=== PATIENT | female | born 1970 | race Caucasian/White ===

== ENCOUNTER 2017-01-01 19:31 | Observation (INO) ==
[2017-01-01] MEDS ORDERED: ASPIRIN PO STA (19:34)
[2017-01-01] MEDS ORDERED: NITROGLYCERIN ONE (20:01)
[2017-01-01 20:05] LABS: MANUAL DIFF NEEDED? NO
[2017-01-01] MEDS: NITROGLYCERIN SL PRN ×2 (20:05→23:11)
[2017-01-01 20:09] LABS: BASO% 0.2 % (0.0-0.8); EOS# 0.16 X1000 (0.0-0.7); EOS% 1.5 % (0.0-10.0); IMM GRAN# 0.03 X1000 (0.0-0.04); IMM GRAN% 0.3 % (0.0-0.5); LYMPH% 27.3 % (20.5-51.1); MCH 28.3 PG (27-31); MCHC 32.4 g/dL (33-37); MCV 87.3 FL (81-99); MONO% 3.8 % (1.7-9.3); MPV 10.4 FL (7.4-10.4); NEUT% 66.9 % (42.2-75.2); PLT 364 X1000 (130-400); RBC 4.24 XMIL (4.2-5.4)
[2017-01-01 20:15] LABS: INR 0.99; PROTIME 10.4 Seconds (9.2-11.7)
[2017-01-01 20:32] LABS: AGAP 12; ALKALINE PHOSPHATASE 60 U/L (32-104); BUN 13 mg/dL (8-22); CALCIUM 8.8 mg/dL (8.8-10.2); CHLORIDE 104 mmol/L (98-107); CK PROFILE 104 U/L (24-173); COSMO 279; GOT 11 U/L (10-30); GPT 9 U/L (10-36); POTASSIUM 3.6 mmol/L (3.5-5.1); SODIUM 139 mmol/L (136-145); TCO2 23 mmol/L (25-35); TOTAL BILIRUBIN 0.15 mg/dL (0.20-1.00); TOTAL PROTEIN 7.6 g/dL (6.3-8.3)
--- NOTE | 2017-01-01 21:55 | ED EKG INTERP ---
This chart was entered by Margarita Benitez Scribe, acting as scribe for Deshawn Gacría MD. EKG Interpretation - EKG Time of EKG reading by physician:: 19:37 EKG Read and Signed by:: Deshawn García EKG Interpretation (*Must complete 3 of following elements*): Abnormal Rate: 98 Rhythm: Sinus Rhythm W/ occasional premature ventricular complexes Comments: Abnormal ECG This chart was documented by the indicated scribe, (Margarita Benitez Scribe) and accurately reflects the services I performed and decisions made by me, Deshawn García MD, as attested by the provider's signature.
[2017-01-01 22:37] LABS: URINE MICRO REVIEW NEEDED? NO; URINE SOURCE CLEAN CATCH
[2017-01-01 22:40] LABS: BILIRUBIN URINE NEGATIVE (NEGATIVE); BLOOD URINE SMALL (NEGATIVE); COLOR YELLOW; GLUCOSE URINE NEGATIVE (NEGATIVE); LEUKOCYTES URINE NEGATIVE (NEGATIVE); NITRITE URINE NEGATIVE (NEGATIVE); PROTEIN URINE NEGATIVE (NEGATIVE); SP GRAVITY URINE 1.023; TURBIDITY URINE CLEAR (CLEAR); UROBILINOGEN URINE NORMAL (NORMAL)
[2017-01-01 22:42] LABS: UR EPITHELIAL CELLS >10 /HPF (<10); URINE BACTERIA 2+ /HPF; URINE RBC <10 /HPF (<10); URINE WBC <10 /HPF (<10)
[2017-01-01] MEDS ORDERED: NITROGLYCERIN SL PRN (23:11)
--- NOTE | 2017-01-02 00:32 | PROVIDER DOCUMENTATION ---
This chart was entered by Margarita Benitez Scribe, acting as scribe for Deshawn Garíca MD. HPI-Chest Pain - General Chief Complaint: Chest Pain Stated Complaint: CHEST PAIN Time Seen by Provider: 01/01/17 21:37 Source: patient Allergies/Adverse Reactions: Patient Allergies Allergy/AdvReac Type Severity Reaction Status Date / Time No Known Allergies Allergy Verified 01/01/17 21:03 Home Medications: Home Medication List Medication Instructions Recorded Confirmed Last Taken Type NK [No Home Medications] 01/01/17 01/01/17 Unknown History - History of Present Illness-CP Nature of Presenting Problem: 46 Y/O F presents to ED with Chest Pain. Pt states that that today she was at work around [id number]. Pt states that she had a sharp pain in her chest, with left arm numbness, diaphoresis, V felt near syncope and fatigue. Pt has a family hx of coronary disease. Location: reports: central Chest Pain Radiation: reports: no radiation Severity in ED: moderate, severe Onset/Duration: just prior to arrival, 1-3 hours ago Timing: still present Context/Activities at Onset: reports: none Associated Symptoms: reports: diaphoresis, fatigue, fever/chills, vomiting, weakness Nitro Today/Relief: no nitro taken today Aspirin Treatment Today: no aspirin today Review of Systems - Adult - REVIEW OF SYSTEMS - ADULT Constitutional: reports: chills, fatique. denies: fever Eyes: reports: no symptoms reported Ears, Nose, Mouth & Throat: reports: no symptoms reported Cardiovascular: reports: chest pain Respiratory: denies: shortness of breath Gastrointestinal: reports: vomiting. denies: abdominal pain, nausea Genitourinary: reports: no symptoms reported Musculoskeletal: reports: no symptoms reported Integumentary: reports: no symptoms reported Neurological: reports: numbness, syncope (near). denies: dizziness/vertigo, headache/migraines Psychiatric: reports: no symptoms reported Endocrine: reports: no symptoms reported Hematologic/Lymphatic: reports: no symptoms reported Allergic/Immunologic: reports: no symptoms reported All Other Systems: Reviewed and Negative Past History - Adult - PAST MEDICAL HISTORY-ADULT Review of Records: reports: Old Records Reviewed, Nursing Assessment Review, Medications Reviewed, Social history reviewed & non-contributory. Physical Exam-General - CONSTITUTIONAL General Appearance: alert, mild distress, obese - EYES Eyes: PERRL/EOMI, pink conjunctivae - HEAD, EARS, NOSE, MOUTH & THROAT HENMT: moist mucous membranes, normal ENT inspection, TMs normal, pharynx normal - NECK Neck: non-tender, full range of motion, supple, normal inspection - RESPIRATORY Respiratory: lungs clear, normal breath sounds - CARDIOVASCULAR Cardiovascular: regular rate, rhythm - GASTROINTESTINAL (ABDOMEN) Abdominal Exam: non tender, soft - LYMPHATIC Lymphatic: no adenopathy - MUSCULOSKELETAL Back Exam: normal inspection, no CVA tenderness, no vertebral tenderness Extremity: normal range of motion, non-tender - SKIN Integumentary: normal color, normal turgor, warm/dry - NEUROLOGIC Neurologic: grossly normal - PSYCHIATRIC Psych/Mental Status: normal thought content, normal thought process, oriented x 3, anxious Progress - PLAN OF CARE/RESULTS Progress/Plan/Lab Results: Vital Signs - 8 hr 01/01/17 19:35 01/01/17 20:45 01/01/17 21:45 Temperature 98.1 F Pulse Rate 100 H 88 87 Respiratory Rate 18 17 15 Blood Pressure 128/73 131/86 136/87 O2 Sat by Pulse Oximetry 100 98 98 01/01/17 22:54 01/02/17 00:29 Temperature Pulse Rate 81 80 Respiratory Rate 15 18 Blood Pressure 112/64 99/59 O2 Sat by Pulse Oximetry 97 98 Laboratory Results - last 24 hr 01/01/17 01/01/17 01/01/17 19:44 19:44 19:44 WBC 10.61 RBC 4.24 Hgb 12.0 Hct 37.0 MCV 87.3 MCH 28.3 MCHC 32.4 L RDW Std Deviation 13.4 Plt Count 364 MPV 10.4 Immature Gran % (Auto) 0.3 Neut % (Auto) 66.9 Lymph % (Auto) 27.3 Emmons % (Auto) 3.8 Eos % (Auto) 1.5 Baso % (Auto) 0.2 Immature Gran # (Auto) 0.03 Neut # (Auto) 7.10 H Lymph # (Auto) 2.90 Emmons # (Auto) 0.40 Eos # (Auto) 0.16 Baso # (Auto) 0.02 PT INR PTT (Actin FS) D-Dimer 0.62 H Sodium 139 Potassium 3.6 Chloride 104 Carbon Dioxide 23 L Anion Gap 12 BUN 13 Creatinine 0.7 Estimated GFR/1.73 m2 > 60 BUN/Creatinine Ratio 19 Glucose 114 H Calculated Osmolality 279 Calcium 8.8 Magnesium 2.0 Total Bilirubin 0.15 L AST 11 ALT 9 L Alkaline Phosphatase 60 Creatine Kinase 104 Troponin T Btf-H-Dyeztegpoty Pept Total Protein 7.6 Albumin 4.0 Globulin 3.6 Albumin/Globulin Ratio 1.1 Urine Source Urine Color Urine Turbidity Urine pH Ur Specific [place] Urine Protein Ur Glucose (Stick) Ur Ketones (Stick) Urine Blood Urine Nitrite Urine Bilirubin Urobilinogen Dipstick Urine Leukocytes Urine WBC (Auto) Urine RBC (Auto) U Epithel Cells (Auto) Urine Bacteria (Auto) 01/01/17 01/01/17 01/01/17 19:44 19:44 19:44 WBC RBC Hgb Hct MCV MCH MCHC RDW Std Deviation Plt Count MPV Immature Gran % (Auto) Neut % (Auto) Lymph % (Auto) Emmons % (Auto) Eos % (Auto) Baso % (Auto) Immature Gran # (Auto) Neut # (Auto) Lymph # (Auto) Emmons # (Auto) Eos # (Auto) Baso # (Auto) PT 10.4 INR 0.99 PTT (Actin FS) 28.0 D-Dimer Sodium Potassium Chloride Carbon Dioxide Anion Gap BUN Creatinine Estimated GFR/1.73 m2 BUN/Creatinine Ratio Glucose Calculated Osmolality Calcium Magnesium Total Bilirubin AST ALT Alkaline Phosphatase Creatine Kinase Troponin T < 0.010 Igj-C-Fblzcpcsuui Pept 104 Total Protein Albumin Globulin Albumin/Globulin Ratio Urine Source Urine Color Urine Turbidity Urine pH Ur Specific [place] Urine Protein Ur Glucose (Stick) Ur Ketones (Stick) Urine Blood Urine Nitrite Urine Bilirubin Urobilinogen Dipstick Urine Leukocytes Urine WBC (Auto) Urine RBC (Auto) U Epithel Cells (Auto) Urine Bacteria (Auto) 01/01/17 22:22 WBC RBC Hgb Hct MCV MCH MCHC RDW Std Deviation Plt Count MPV Immature Gran % (Auto) Neut % (Auto) Lymph % (Auto) Emmons % (Auto) Eos % (Auto) Baso % (Auto) Immature Gran # (Auto) Neut # (Auto) Lymph # (Auto) Emmons # (Auto) Eos # (Auto) Baso # (Auto) PT INR PTT (Actin FS) D-Dimer Sodium Potassium Chloride Carbon Dioxide Anion Gap BUN Creatinine Estimated GFR/1.73 m2 BUN/Creatinine Ratio Glucose Calculated Osmolality Calcium Magnesium Total Bilirubin AST ALT Alkaline Phosphatase Creatine Kinase Troponin T Ftg-L-Kjlalqmqkfn Pept Total Protein Albumin Globulin Albumin/Globulin Ratio Urine Source CLEAN CATCH Urine Color YELLOW Urine Turbidity CLEAR Urine pH 6.0 Ur Specific [place] 1.023 Urine Protein NEGATIVE Ur Glucose (Stick) NEGATIVE Ur Ketones (Stick) NEGATIVE Urine Blood SMALL A Urine Nitrite NEGATIVE Urine Bilirubin NEGATIVE Urobilinogen Dipstick NORMAL Urine Leukocytes NEGATIVE Urine WBC (Auto) <10 Urine RBC (Auto) <10 U Epithel Cells (Auto) >10 A Urine Bacteria (Auto) 2+ Orders Category Date Time Status Cardiac Monitoring DIRECTED Care 01/01/17 19:34 Active Saline Loc NOW Care 01/01/17 19:34 Active ANGIOGRAM/PULMONARY ARTERIES [CT] Stat Exams 01/01/17 21:58 Taken CHEST-2 VIEWS [RAD] Stat Exams 01/01/17 19:34 Taken CBC WITH ELECTRONIC DIFF [HEME] Stat Lab 01/01/17 19:44 Completed CK PROFILE [SP CHEM] Stat Lab 01/01/17 19:44 Completed COMPREHENSIVE METABOLIC PANEL [CHEM] Stat Lab 01/01/17 19:44 Completed D-DIMER [CHEM] Stat Lab 01/01/17 19:44 Completed MAGNESIUM [CHEM] Stat Lab 01/01/17 19:44 Completed PRO B-NATRIURETIC PEPTIDE Stat Lab 01/01/17 19:44 Completed PROTIME WITH INR [COAG] Stat Lab 01/01/17 19:44 Completed PTT [COAG] Stat Lab 01/01/17 19:44 Completed TROPONIN T Stat Lab 01/01/17 19:44 Completed URINALYSIS [URINALYSIS] Stat Lab 01/01/17 22:22 Completed Aspirin Med 01/01/17 19:34 Discontinued 325 mg PO STAT STA Nitroglycerin Sl [Nitroglycerin] Med 01/01/17 20:01 Discontinued 0.4 mg .ROUTE .STK-MED ONE Nitroglycerin Sl [Nitroglycerin] Med 01/01/17 20:04 Active 0.4 mg SL Q5M PRN PRN Nitroglycerin Sl [Nitroglycerin] Med 01/01/17 23:11 Discontinued 0.4 mg SL Q5M PRN PRN EKG [EKG] Stat Ther 01/01/17 19:34 Ordered Transfer/Admit Order [TRANSFER] Routine Transfer 01/02/17 00:09 Ordered Result Diagrams: 01/01/17 19:44 01/01/17 19:44 - XRAY 1 XRAY Study: Chest Impression: Normal XRAY Interpretation: NAD - CT/MRI 1 CT Study: Angiogram Impression: Normal CT Results: No pulmonary embolus. No definite cause for symptoms identified. Departure - Departure Date of Disposition Decision: 01/01/17 Time of Disposition Decision: 23:44 DIAGNOSIS: Chest pain at rest Disposition: ADMITTED INPATIENT 09 Certified Medical Emergency: Emergent Condition: Stable Additional Freetext Instructions: ED Follow Up Instructions: You have been treated by a care provider in the Emergency Department. These instructions are being provided to you so you can have an understanding of how to care for yourself upon discharge. Upon discharge from the Emergency Department, you are responsible for making arrangements for follow-up care by a physician of your choice. Take all prescribed medications as directed. Return to the Emergency Department immediately for any new or worsening symptoms. You may call the Physician Referral phone number at [phone] to obtain a list of Physicians who are taking new patients. Referrals and Follow-Ups: None,PCP [Primary Care Provider] - - Critical Care Note This patient required my direct & personal management of CC.: No This chart was documented by the indicated scribe, (Margarita Benitez Scribe) and accurately reflects the services I performed and decisions made by me, Deshawn García MD, as attested by the provider's signature.
[2017-01-02] MEDS ORDERED: NITROGLYCERIN SL PRN (01:52)
[2017-01-02] MEDS ORDERED: TYLENOL PO PRN (01:52)
[2017-01-02] MEDS ORDERED: MORPHINE IV PRN (01:52)
[2017-01-02] MEDS ORDERED: G.I. COCKTAIL PO ONE (01:52)
--- NOTE | 2017-01-02 02:03 | HISTORY AND PHYSICAL ---
PRIMARY CARE PHYSICIAN: No primary care physician. REASON FOR ADMISSION: Chest pain this afternoon. HISTORY OF PRESENT ILLNESS: Ms. Santa Rangel is a 46-year-old lady with no significant past medical history, who comes in today complaining of sharp stabbing chest pain in the precordial area, radiating down her left arm, with associated numbness. She said the pain is intermittent. No specific aggravating or relieving factors. The pain became more intense, more frequent, with longer durations. This bothered her to the point that she had to come in to get this checked out. Also, the latter chest pain episodes were also marked with profound nausea, diaphoresis, shortness of breath, and dizziness. The patient was then persuaded at the behest of her coworkers to get checked out at the hospital. The patient admits to having some decreased exercise tolerance over the last couple of days, with mild lower extremity swelling. No PND or orthopnea. No cough, fever, or chills. Also, she denies any leg redness or pain. On arrival here to the ER, she was given sublingual nitroglycerin and aspirin, and her chest pain has almost abated. REVIEW OF SYSTEMS: Twelve systems is negative. Positive findings per HPI. ALLERGIES: No known allergies. MEDICATIONS: None. SURGERIES: She had a cholecystectomy, appendectomy, and hysterectomy. FAMILY HISTORY: Notable for heart disease and type 2 diabetes. SOCIAL HISTORY: She is . Lives with her and grandchildren. No alcohol or illicit drug use. LABORATORY WORK: EKG showed no ST-wave changes consistent with ischemia or injury pattern. White count 11,000. Hemoglobin and hematocrit 12 and 37. Platelets 364, with normal differential. Glucose 114. Troponin negative. D-dimer 0.62, but subsequent CT angiogram of the chest was normal. PT/PTT is normal. Urinalysis shows 2+ bacteria, but no history of genitourinary complaints. Chest x-ray is normal. PHYSICAL EXAMINATION: GENERAL: Morbidly obese, middle-aged woman, who is alert and oriented to person, place, and time, with normal mood and affect. Blood pressure is 112/64, heart rate 81, respirations 15, temperature 98.1, 97% on room air. She is a slightly anxious middle-aged woman. HEENT: Head normocephalic, atraumatic. Eyes BRAD, EOMI. Anicteric and not pale. ENT and oropharynx exam is grossly normal. NECK: Supple. No JVD or carotid bruit. No thyromegaly. CHEST: Clear to auscultation. Good air entry in both lung cole. CARDIOVASCULAR: First and second sounds heard. A 2/6 ejection systolic murmur heard in the aortic area. Rhythm is regular. No gallops. ABDOMEN: Protuberant, soft. No tenderness noted. No mass is appreciated. Bowel sounds are hypoactive. RECTAL: Deferred at this time. EXTREMITIES: Trace edema in both lower extremities. Pulses felt distally. Lower extremities are symmetrical, with good volume. No clubbing or peripheral cyanosis. NEUROLOGICAL: No focal deficits. SKIN: Intact. No breakdown, lesions, or erythema. MUSCULOSKELETAL: Exam is grossly normal. ASSESSMENT: Chest pain syndrome, cardiac versus gastrointestinal. PLAN: At this time, admit patient to undergo chemical stress test, since she cannot ambulate that much. Prior to this, serial cardiac enzymes will be done, and if they are negative, this test can proceed. Risk factors, i.e. lipids and A1c, have been ordered also. If stress test is negative, we will need to consider alternative diagnoses, e.g. GI. Will give the patient a GI cocktail and start on PPIs to see if her pain is completely abated. The patient has no primary care physician, and would recommend that she get one prior to her discharge. cc: Guillermina Chino MD
[2017-01-02] MEDS: PRILOSEC PO SCH ×3 (02:09→21:15)
[2017-01-02 02:42] LABS: HEMOGLOBIN A1C 5.8 % (4.8-6.0)
--- NOTE | 2017-01-02 05:40 | EKG Report ---
Test Performed on : 01/01/2017 7:37:06 PM Test Reason : Chest Pain Blood Pressure : / mmHG Vent. Rate : 098 BPM Atrial Rate : 098 BPM P-R Int : 126 ms QRS Dur : 084 ms QT Int : 348 ms P-R-T Axes : 040 000 -09 degrees QTc Int : 444 ms Sinus rhythm. with occasional premature ventricular complexes. T wave abnormality, consider inferior ischemia Abnormal ECG No previous ECGs available Unconfirmed Result
--- NOTE | 2017-01-02 06:57 | EKG Report ---
Test Performed on : 01/02/2017 06:19:31 AM Test Reason : CP Blood Pressure : / mmHG Vent. Rate : 065 BPM Atrial Rate : 065 BPM P-R Int : 148 ms QRS Dur : 084 ms QT Int : 414 ms P-R-T Axes : 041 003 -02 degrees QTc Int : 430 ms Normal sinus rhythm. Normal ECG When compared with ECG of 01-JAN-2017 19:37, (Unconfirmed) premature ventricular complexes. are no longer present Vent. rate has decreased BY 33 BPM Confirmed by Luis Cunningham MD ([id number]) on 01/03/2017 1:00:00 PM
[2017-01-02 07:07] LABS: AGAP 13; BUN 10 mg/dL (8-22); CALCIUM 8.5 mg/dL (8.8-10.2); CHLORIDE 106 mmol/L (98-107); COSMO 278; POTASSIUM 3.8 mmol/L (3.5-5.1); SODIUM 140 mmol/L (136-145); TCO2 21 mmol/L (25-35)
--- NOTE | 2017-01-02 07:17 | Diag Imaging Result Doc PS360 ---
CHEST-2 VIEWS - 01/01/2017 INDICATION: CP TECHNIQUE: COMPARISON: None FINDINGS: Lung volumes are severely low. The lungs are clear. Heart size and mediastinal contours are normal. No pneumothorax or pleural effusion. IMPRESSION: Low lung volumes but no acute disease. Electronically signed by Nolan Motley 01/02/2017 7:15 AM
--- NOTE | 2017-01-02 07:28 | Diag Imaging Result Doc PS360 ---
EXAM: ANGIOGRAM/PULMONARY ARTERIES INDICATION: sob, inc DD TECHNIQUE: Dose reduction protocol was used. COMPARISON: None. FINDINGS: There is no evidence of pulmonary embolism. There is trace atherosclerotic calcification the aortic arch. There is no evidence of aortic aneurysm or dissection. There is mild cardiomegaly. There is no evidence of significant lymphadenopathy. There is no airspace consolidation. There are several subcentimeter nodular densities that are noncalcified in the right mid and lower lung zone. The largest of these is pleural-based in the right lower lobe on image 85 of series 7 and measures up to 5.4 mm axially. Statistically, these likely represent noncalcified granulomata. Consider follow-up based on Fleischner Society criteria if clinically warranted. There are no pleural effusions and there is no pneumothorax. IMPRESSION: 1.A few nonspecific subcentimeter nodules on the right. Please see above discussion. 2.Mild cardiomegaly. 3.No evidence of pulmonary embolism or other definite acute pathology. Electronically signed by Francis Pelaez 01/02/2017 7:25 AM
[2017-01-02] MEDS ORDERED: LEXISCAN ONE (08:40)
[2017-01-02] MEDS ORDERED: AMINOPHYLLINE ONE (10:34)
[2017-01-02] MEDS: ZOFRAN IV PRN ×2 (11:25→21:15)
[2017-01-02] MEDS: ASPIRIN PO SCH (11:28)
[2017-01-02] MEDS: LOVENOX SUBQ SCH (11:33)
--- NOTE | 2017-01-02 14:32 | Diag Imaging Result Document ---
PROCEDURE NAME: MYOCARDIAL PERF SCAN, STR/REST - 01/02/2017 SUMMARY: The patient was administered 15.3 millicuries of technetium 99-m sestamibi after which resting cardiac images were obtained. The patient was subsequently stressed using Lexiscan protocol. Following the administration of Lexiscan, the heart rate went from 110 beats per minute to 97 beats per minute while the blood pressure went from 111/68 to 127/71. With Lexiscan, the patient reported moderate chest tightness transiently which resolved spontaneously. Following administration of Lexiscan, the patient was administered 43.7 millicuries of technetium-99m sestamibi, after which gated stress cardiac images were obtained. Baseline ECG demonstrated sinus rhythm, nondiagnostic inferior Q-waves, and low voltage QRS in precordial leads. With Lexiscan, there were no diagnostic ST-segment changes. SPECT images were reconstructed in the short, horizontal long, and vertical long axis. Review of these images demonstrated increased gut uptake of radiopharmaceutical beneath the heart on both stress and resting images to a similar degree. There is a small region of thinning in the lateral apex, probably artifactual. There is no scintigraphic evidence of inducible myocardial ischemia or prior infarct. Gated images demonstrate a calculated left ventricular ejection fraction of 66% with symmetrical wall motion/thickening. CONCLUSIONS: 1. Adequate response to Lexiscan. 2. Clinically the patient reported transient chest tightness with Lexiscan. 3. Electrocardiographically there were no diagnostic ST-segment changes on ECG following administration of Lexiscan. 4. Lexiscan sestamibi images negative for Lexiscan induced myocardial ischemia. Normal left ventricular systolic function demonstrated. cc: MD Nelson Gutierrez MD
[2017-01-03] MEDS: PRILOSEC PO SCH (08:38)
[2017-01-03] MEDS: ASPIRIN PO SCH (08:38)
[2017-01-03] MEDS: LOVENOX SUBQ SCH (08:38)
[2017-01-03 10:56] VITALS: BP 96/56
--- NOTE | 2017-01-03 13:31 | ECHO REPORT ---
ORDER DATE: 01/02/2017 MEASUREMENTS: Left ventricular end-diastolic diameter 4.8, systolic diameter 2.7. Posterior wall thickness 1.0, septal thickness 1.0, left atrium 3.4, aortic root 2.6. SUMMARY: 1. Fair quality study. 2. Aortic mitral tricuspid and pulmonic valves are without structural abnormality with trace mitral regurgitation and trace tricuspid regurgitation. Estimated systolic PA pressure by Doppler is 25 mmHg. Aortic root is normal size. 3. Normal left ventricle dimensions demonstrated. Estimated left ventricular ejection fraction appears to be at least 60%. No regional wall motion abnormalities evident. Left atrium, right atrium, right ventricle are normal size with normal right ventricular systolic function. 4. No pericardial effusion. 5. Inferior vena cava not seen. cc: MD Guillermina Gutierrez MD
--- NOTE | 2017-01-03 20:44 | DISCHARGE SUMMARY ---
ADMISSION DATE: 01/02/2017 DISCHARGE DATE: 01/03/2017 CONSULTATIONS: None. PERTINENT PROCEDURES: 1. Pulmonary arteriogram showed a few nonspecific subcentimeter nodules at the right, mild cardiomegaly. No evidence of pulmonary embolism or other acute pathology. 2. Myocardial perfusion scan. Negative for Lexiscan-induced myocardial ischemia. Normal LV systolic function demonstrated. DISCHARGE DIAGNOSIS: Chest pain. Patient was ruled out for NE. CT of the chest was negative. Cardiac enzymes were negative. Lexiscan was negative. Chest pain has since resolved. Stable. HOSPITAL COURSE: Briefly, Ms. Rangel is a 46-year-old female with no significant past medical history who came to the ED complaining of sharp-stabbing chest pain in the precordial area radiating down her left arm with associated numbness. She said the pain was intermittent. No specific aggravating or relieving factors. Pain became more intense, more frequent, with longer durations. It bothered her to the point where she came to the ED to get checked out. She did admit that later chest pain episodes were marked with profound nausea, diaphoresis, shortness of breath, and dizziness. She was admitted for chest pain syndrome, cardiac versus gastrointestinal. She underwent a CTA that was negative as well as a Lexiscan that was negative. She was given a GI cocktail and started on PPI. Her pain has abated. Cardiac enzymes are negative. The patient is to be discharged home on PPI, Prilosec. DISCHARGE VITAL SIGNS: Temperature is 98.1 degrees, heart rate 71, respirations 20, blood pressure is 96/56, O2 is 98% on room air. DISCHARGE DIET: Healthy heart. DISCHARGE MEDICATIONS: Prilosec 40 mg p.o. daily. DISPOSITION: The patient is being discharged home with self-care. DISPOSITION: She will need to find a primary care physician in the next 1-2 weeks and follow up. She can return to the ED for any worsening of symptoms. TOTAL TIME SPENT ON DISCHARGE: 30 minutes. Dictated by MIKE Miles for James Lorenzo MD cc: James Lorenzo MD
== END 2017-01-03 13:35 | disposition home or self-care (01) ==
LOC: ED 19:31 → 4N 19:31 → INTOOBSV 01-02 01:01 → SUATTDRO 01-02 01:01 → OBSVTOIN 01-02 01:01
PROVIDERS: ATTEND Internal Medicine